=== PATIENT | female | born 1975 ===

== ENCOUNTER 2022-12-24 13:46 | Emergency (ER) | payer BC ==
[2022-12-24] MEDS ORDERED: Sodium Chloride 0.9% 1,000 ML ONE (14:24)
== END 2022-12-24 19:25 | disposition home or self-care (01) ==
LOC: JD.ED 13:46
DX: D50.0 Iron deficiency anemia secondary to blood loss (chronic) (principal); Z86.16 Personal history of COVID-19; Z79.899 Other long term (current) drug therapy
CPT/HCPCS: 36415; 36430; 86850; 86900; 86901; 86922; 99284; J7030; P9016; 99282